=== PATIENT | female | born 1935 | race Caucasian/White ===

== ENCOUNTER 2017-08-26 08:29 | Inpatient (IN) ==
--- NOTE | 2017-08-26 11:42 | Internal Med History&Physical ---
Date of Encounter: 08/26/17 Time of Encounter: 11:39 Internal Medicine - H&P: HPI Chief complaint: upper GIB Admitted From: Intrahospital Transfer Plans for Post Hospital Care: Home History of present illness: Ms. Bobby is a 82 year old woman with a history of Andrade's esophagus who was transferred from [place], [place] because of an upper GIB. She began having multiple episodes of N/V overnight and was taken to [facility]. In the ER she reportedly had several bouts of hematemesis and her hgb was moted to be 11.3. The last available Hgb is from February 2017 when it was 12.7. She does not take antiplatelet agents or anticoagulants and her coags are wnl. She was initially very hypertensive at the OSH with an initial BP of 214/96 recorded. She was given hydralazine prior to transfer and her BP is now improved. An NG tube was placed and she was given IVFs and Zofran to control her N/V. She is not c/o abdominal pain and has not noted dark stools or BRBPR. 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 Past Med Surg Social Fam HX - Past Medical History Medical history: arthritis, COPD, GERD, osteoporosis Psychiatric history: no psych history - Past Surgical History Surgical History: cataract - Social History Smoking Status: Never smoker Smokeless Tobacco Status: No Alcohol use: none Drug use: none All Systems PM: A 10-system review of systems was performed and is negative for pertinent findings except as documented above in the HPI. - Constitutional Constitutional: weakness, no fever(s), no lethargy, no night sweats - EENT Eyes: no blurry vision, no pain, no tunnel vision Ears: no ear discharge, no ear pain Nose, mouth and throat: no bleeding gums, no dental pain, no sinus pain - Cardiovascular Cardiovascular ROS IM: no chest pain, no edema, no lightheadedness, no palpitations - Respiratory Respiratory: no cough, no hemoptysis, no snoring, no stridor - Gastrointestinal Gastrointestinal: coffee ground emesis, hematemesis, no abdominal pain, no constipation, no diarrhea, no hematochezia, no odynophagia - Neurological Neurological ROS: no dizziness, no headache(s), no tremor(s) - Psychiatric Psychiatric: no behavioral changes - Allergic/Immunologic Allergic/Immunologic: no tongue swelling, no wheezing, no lip swelling - Head Head exam: Present: atraumatic, normocephalic - Eye Eye exam: Present: PERRL, conjuntiva pink, sclera anicteric Pupils: Present: PERRL - Neck Neck exam general surgery: Present: supple, trachea midline. Absent: lymphadenopathy - Cardiovascular Cardiovascular exam: Present: RRR, +S1, +S2. Absent: diastolic murmur, gallop, rubs, systolic murmur - GI/Abdominal GI/Abdominal exam: Present: normal bowel sounds, soft, no peritoneal signs. Absent: distended, firm, guarding, tenderness - Expanded GI/Abdominal Exam GI/Abdominal exam expanded: Absent: ascites - Neurological Exam Neurological exam: Present: CN II-XII intact, oriented X3, no focal deficits. 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 Qualified Code(s): K22.719 - Andrade's esophagus with dysplasia, unspecified; K22.71 - Andrade's esophagus with dysplasia Code(s): K22.70 - Andrade's esophagus without dysplasia (3) Acute blood loss anemia Current Visit: Yes Status: Acute Assessment and plan: Serial H&H q6 hrs first 24 hrs Hgb >11 now Protonix 40 mg PO BID SNOMED Code(s): 468341872 (4) Hypertensive urgency Current Visit: Yes Status: Acute Assessment and plan: Add Lisinopril and PRN Hydrazine for SBP > 150 mmHg (5) COPD (chronic obstructive pulmonary disease) Current Visit: No Status: Chronic Assessment and plan: COPD without exacerbation Continue home bronchodilators Qualifiers: Chronic bronchitis type: unspecified Qualified Code(s): J42 - Unspecified chronic bronchitis (6) Hiatal hernia Current Visit: No Status: Chronic (7) GERD (gastroesophageal reflux disease) Current Visit: No Status: Chronic Assessment and plan: Change Omeprazole to Protonix 40 mg q12 hrs Qualifiers: Esophagitis presence: esophagitis presence not specified Qualified Code(s) : K21.9 - Gastro-esophageal reflux disease without esophagitis (8) DVT prophylaxis Current Visit: Yes Status: Acute Assessment and plan: SCDs No anticoagulation - Time Spent With Patient Total time spent is greater than 50% in coordination of care (as documented) at patient's floor/unit and/or counseling patient: Greater than 35 minutes
[2017-08-26] MEDS ORDERED: Ondansetron 4 MG/2 ML VIAL IVP ONE (12:30)
[2017-08-26] MEDS ORDERED: *HR* Promethazine 25 MG/ML VIAL IVP PRN (12:30)
[2017-08-26 12:59] LABS: Hematocrit 37.5 % (35.3-44.9); Hemoglobin 11.7 g/dL (11.5-15.4)
[2017-08-26] MEDS: 0.9 % Sodium Chloride 1,000 ML IVC SCH (13:48)
--- NOTE | 2017-08-26 13:51 | Gastroenterology Consult Note ---
<SheaNeftaly - Last Filed: 08/26/17 16:27> Date of Encounter: 08/26/17 Time of Encounter: 13:49 - Assessment and plan (1) GERD (gastroesophageal reflux disease) Status: Chronic Assessment and plan: Patient takes Omeprazole 40mg PO daily at home Continue PPI Qualifiers: Esophagitis presence: esophagitis presence not specified Qualified Code(s) : K21.9 - Gastro-esophageal reflux disease without esophagitis (2) Andrade esophagus Status: Chronic Assessment and plan: September 2016 EGD revealed Andrade's esophagus Anticipate EGD tomorrow Qualifiers: Andrade's esophagus type: with dysplasia of unspecified degree Qualified Code(s): K22.719 - Andrade's esophagus with dysplasia, unspecified; K22.71 - Andrade's esophagus with dysplasia (3) Acute blood loss anemia Status: Acute Assessment and plan: September 2016 colonoscopy revealed diverticulosis and polyps x3 She does not take antiplatelet agents or anticoagulants Monitor CBC (4) Hematemesis with nausea Status: Acute Assessment and plan: Patient transferred from [facility] due to an upper GIB. She began having multiple episodes of hematemesis overnight with BRB clots. HGB was noted to be 11.3 (decreased from 12.7 in February 2017). NG tube was placed yielding about 1L of coffee ground emesis. Patient was given IVFs and Zofran to control her N/V. Continue NPO status Anticipate EGD tomorrow - Time Spent With Patient Total time spent is greater than 50% in coordination of care (as documented) at patient's floor/unit and/or counseling patient: GI History of Present Illness - Data of Consult Patient: new to practice Consult date: 08/26/17 Requesting Physician: Nikolay Vanegas MD - Consult Narrative Reason for consult: Upper GIB likely Annette Vinicio tear following multiple bouts of N/V hgb>11 History of present illness: Ms. Bobby is a 82 year old female with a history of Andrade's esophagus, GERD, diverticulosis, left nephrectomy for nonfunctional kidney, COPD, and HTN who was transferred from [facility] due to an upper GIB. She began having multiple episodes of hematemesis overnight with BRB clots, and her HGB was noted to be 11.3 (decreased from 12.7 in February 2017). An NG tube was placed yielding about 1L of coffee ground emesis. Patient was given IVFs and Zofran to control her N/V. She currently denies abdominal pain, dark stools, or BRBPR. She was initially very hypertensive with BP of 214/96 and was given Hydralazine prior to transfer. Her BP has now improved. She does not take antiplatelet agents or anticoagulants and has been on Omeprazole 40mg daily. Colonoscopy: September 2016 colonoscopy revealed diverticulosis and polyps x3 EGD: September 2016 EGD revealed Andrade's esophagus Past Med Surg Social Fam HX - Past Medical History Medical history: arthritis, cancer (ovarian), COPD, GERD, osteoporosis Psychiatric history: no psych history - Past Surgical History Surgical History: cataract, hysterectomy, other (left nephrectomy) - Social History Smoking Status: Never smoker Smokeless Tobacco Status: No Alcohol use: none Drug use: none Current living situation: Home - Independent, With Family Activity Level: Independent ambulation - Family History Mother Hx Family Cardiac Disorders: Yes (HTN) Hx Family Endocrine Disorder: Yes (DM) Hx Family Neurologic Disorders: Yes (CVA) Father Hx Family Neurologic Disorders: Yes (CVA) - Gastrointestinal Gastrointestinal: Present: hematemesis, nausea, vomiting. Absent: abdominal pain, change in bowel habits, constipation, diarrhea, dyspepsia, hematochezia, melena - Constitutional Constitutional: fatigue, no anorexia, no fever(s), no weight gain, no weight loss - EENT Nose, mouth and throat: Absent: dysphagia, sore throat - Cardiovascular Cardiovascular ROS: Absent: chest pain, irregular heart rhythm, palpitations - Respiratory Respiratory IM: Absent: cough, dyspnea, hemoptysis - Genitourinary Genitourinary: Present: change in color. Absent: Urinary frequency - Neurological ROS Neurological GI: Present: headache(s), weakness. Absent: confusion, dizziness - Hematologic/Lymphatic Hematologic/Lymphatic pediatric: Present: as per HPI. Absent: easy bleeding - Musculoskeletal Musculoskeletal ROS GI: Present: back pain (chronic). Absent: joint swelling - Integumentary Integumentary GI: Absent: jaundice, pruritis, rash - Psychiatric ROS Psychiatric GI: Absent: anxiety, depression - Endocrine Endocrine IM: Present: fatigue. Absent: cold intolerance, heat intolerance - Constitutional Vitals: Temp Pulse Resp BP Pulse Ox 98.3 F 99 18 185/84 96 08/26/17 12:30 04/03/18 12:30 08/26/17 12:30 08/26/17 12:30 08/26/17 12:30 General appearance: Present: cooperative, A&O X 3, no acute distress, answers questions appropriately - Head Head exam: Present: atraumatic, normocephalic - Eye Eye exam: Present: normal appearance, sclera anicteric - ENT ENT exam: Present: mucous membranes dry (NG tube in place), normal oropharynx - Neck Neck exam general surgery: Present: normal inspection, trachea midline - Respiratory Respiratory exam: Present: CTAB - Cardiovascular Cardiovascular exam: Present: RRR, +S1, +S2 - GI/Abdominal GI/Abdominal exam: Present: normal bowel sounds, soft, no peritoneal signs - Rectal Rectal exam: Present: deferred - Extremities Exam Extremities exam: Present: warm. Absent: pedal edema - Neurological Exam Neurological exam: Present: oriented X3, no focal deficits - Psychiatric Psychiatric exam: Present: normal affect, normal mood - Skin Skin exam: Present: dry, intact, normal color, warm Results - Labs CBC & Chem 7: 08/26/17 12:43 Labs: Entire Visit Hgb 11.7 g/dL (11.5-15.4) 08/26/17 12:43 Hct 37.5 % (35.3-44.9) 08/26/17 12:43 Consult Discharge Plan - Plan Referrals: Rebecca Ordonez, BAG MAKING MACHINE TENDER [Advanced Practice Nurse] - 09/02/17 12:40 pm Prescriptions: Omeprazole [PriLOSEC] 40 mg PO BIDAC #60 capsule. Sucralfate [Carafate] 1 gm PO QIDAC #120 tablet <Hermes Quinn - Last Filed: 09/15/17 07:26> Date of Encounter: 08/26/17 Time of Encounter: 13:00 - Time Spent With Patient Total time spent is greater than 50% in coordination of care (as documented) at patient's floor/unit and/or counseling patient: GI History of Present Illness - Data of Consult Requesting Physician: Nikolay Vanegas MD - Consult Narrative History of present illness: Ms. Bobby is a 82 year old female - Constitutional Vitals: Temp Pulse Resp BP Pulse Ox 98.3 F 98 16 171/64 96 08/28/17 10:39 08/28/17 10:39 08/28/17 10:39 08/28/17 10:39 08/28/17 10:39 Results - Labs CBC & Chem 7: 08/28/17 05:31 08/28/17 05:31 Labs: Last Result Calcium 8.7 mg/dL (8.6-10.3) 08/28/17 05:31 Entire Visit Hgb 9.2 g/dL (11.5-15.4) L 08/28/17 05:31 Hct 30.3 % (35.3-44.9) L 08/28/17 05:31 PT 12.3 Seconds (9.4-12.1) H 08/27/17 04:00 - ABG ABG results: PT/INR, D-dimer PT 12.3 Seconds (9.4-12.1) H 08/27/17 04:00 - Attending Attestation Assessment present 82-year-old female who was transferred from [facility] for an upper endoscopy because of what appears to be episodes of hematemesis. Diagnosis is bleeding Annette-Cook tear versus neoplasm given age group versus garden-variety peptic ulcer disease versus arteriovenous malformations will plan upper endoscopy and make further recommendations patient is been typed and screened and we will follow serial hemoglobin and hematocrits I examined this patient and my medical decision-making was reviewed with the Resident Physician. I agree with the documented findings, disposition and treatment plan as described except to the extent set forth below.
[2017-08-26] MEDS: Pantoprazole 40 MG VIAL IVP SCH (18:55)
[2017-08-26 19:13] LABS: Hematocrit 36.5 % (35.3-44.9); Hemoglobin 11.5 g/dL (11.5-15.4)
[2017-08-27] MEDS: Pantoprazole 40 MG VIAL IVP SCH ×2 (05:08→17:56)
[2017-08-27] MEDS: 0.9 % Sodium Chloride 1,000 ML IVC SCH ×2 (05:13→22:02)
[2017-08-27 05:38] LABS: Basophils % 0.2 %; Eosinophils % 0.2 %; Hemoglobin 10.3 g/dL (11.5-15.4); Immature Granulocytes % 0.3 % (0-4); Lymphocytes # 0.8 K/mcL (0.6-4.6); Lymphocytes % 12.9 %; Mean Corpuscular HGB Conc 30.3 g/dL (31.6-35.5); Mean Corpuscular Hemoglobin 24.8 pg (28.0-33.3); Mean Corpuscular Volume 81.7 fL (83.0-100.0); Mean Platelet Volume 10.7 fL (9.4-12.4); Monocytes # 0.6 K/mcL (0.0-1.3); Monocytes % 9.3 %; Neutrophils # 4.7 K/mcL (1.6-8.9); Platelet Count 192 K/mcL (140-400); Red Blood Count 4.16 M/mcL (3.82-4.97); Red Cell Distribution Width 15.1 % (11.5-14.5); Segmented Neutrophils % 77.1 %
[2017-08-27 05:39] LABS: INR 1.1; Prothrombin Time 12.3 Seconds (9.4-12.1)
[2017-08-27 05:42] LABS: Activated Partial Thrombo Time 26.4 Seconds (26.0-36.0)
--- NOTE | 2017-08-27 08:18 | Internal Med Progress Note ---
Date of Encounter: 08/27/17 Time of Encounter: 08:16 - Assessment and plan (1) Acute blood loss anemia Current Visit: Yes Status: Acute Assessment and plan: Acute blood lows anemia likely secondary to upper GI bleed IV fluids, Protonix IV GI consulted for endoscopy May remove NG tube if okay with GI SNOMED Code(s): 959240134 (2) Hematemesis with nausea Current Visit: Yes Status: Acute Assessment and plan: GI consulted and called H&H q 6 hrs next 24 hours Protonix 40 mg PO BID (Change to IV if N/V occurs agin) IVFs NS at 75 ml/hr (3) Andrade esophagus Current Visit: Yes Status: Chronic Qualifiers: Andrade's esophagus type: with dysplasia of unspecified degree Qualified Code(s): K22.719 - Andrade's esophagus with dysplasia, unspecified; K22.71 - Andrade's esophagus with dysplasia Code(s): K22.70 - Andrade's esophagus without dysplasia (4) Hypertensive urgency Current Visit: Yes Status: Acute Assessment and plan: standing dose of IV hydralazine and PRN Hydrazine for SBP > 150 mmHg May resume ramipril and Dyazide in the morning Resume metoprolol in the morning (5) COPD (chronic obstructive pulmonary disease) Current Visit: No Status: Chronic Assessment and plan: COPD without exacerbation Continue home bronchodilators Qualifiers: Chronic bronchitis type: unspecified Qualified Code(s): J42 - Unspecified chronic bronchitis (6) Hiatal hernia Current Visit: No Status: Chronic (7) GERD (gastroesophageal reflux disease) Current Visit: Yes Status: Chronic Assessment and plan: Takes omeprazole at home Qualifiers: Esophagitis presence: esophagitis presence not specified Qualified Code(s) : K21.9 - Gastro-esophageal reflux disease without esophagitis (8) DVT prophylaxis Current Visit: Yes Status: Acute Assessment and plan: SCDs No anticoagulation (9) Fever Current Visit: Yes Status: Acute Assessment and plan: The patient had a low-grade fever of 99.9, test for respiratory panel She was treated with Tamiflu last week even though her test was negative for the flu at [facility] ER Order blood cultures Qualifiers: Fever type: unspecified Qualified Code(s): R50.9 - Fever, unspecified (10) Chronic kidney disease, stage III (moderate) Current Visit: Yes Status: Acute Assessment and plan: Check basic metabolic panel The patient has history of only one kidney due to nephrectomy - Time Spent With Patient Total time spent is greater than 50% in coordination of care (as documented) at patient's floor/unit and/or counseling patient: - Constitutional Vitals: Temp Pulse Resp BP Pulse Ox 99.5 F 97 16 161/73 97 08/27/17 04:45 08/27/17 04:45 08/27/17 04:45 08/27/17 04:45 08/27/17 04:45 Internal Medicine: Result - Labs CBC & Chem 7: 08/27/17 04:00 Labs: Short CBC 08/26/17 08/26/17 08/27/17 Range/Units 12:43 18:50 04:00 WBC 6.0 (4.3-11.1) K/mcL Hgb 11.7 11.5 10.3 L (11.5-15.4) g/dL Hct 37.5 36.5 34.0 L (35.3-44.9) % Plt Count 192 (140-400) K/mcL Neutrophils # 4.7 (1.6-8.9) K/mcL - ABG Interpretation ABG results: PT/INR, D-dimer PT 12.3 Seconds (9.4-12.1) H 08/27/17 04:00 Consult Discharge Plan - Plan Referrals: Jose L Schmitz MD [Primary Care Provider] -
[2017-08-27 09:44] LABS: BUN/Creatinine Ratio 16 (6-26); Blood Urea Nitrogen 15 mg/dL (8-23); Calcium 9.2 mg/dL (8.6-10.3); Carbon Dioxide 26 mEq/L (23-29); Chloride 109 mEq/L (98-107); Glucose 104 mg/dL (70-105); Osmolality,Calculated 293 (280-300); Potassium 3.3 mEq/L (3.5-5.1); Sodium 141 mEq/L (136-145); eGFR For African Americans > 60 (> 60); eGFR For Non-African Americans 56 (> 60)
[2017-08-27] MEDS ORDERED: *HR* Propofol 200 MG/20 ML VIAL IVP ONE (13:43)
[2017-08-27] MEDS ORDERED: Lidocaine -MPF 2% 2 ML VIAL ONE (13:44)
[2017-08-27] MEDS ORDERED: *HR* Metoprolol 5 MG/5 ML VIAL IVP ONE (14:01)
--- NOTE | 2017-08-27 15:01 | Anesthesia Evaluation PreOp ---
Date of Encounter: 08/27/17 Time of Encounter: 14:58 - Past History Planned Operation: EGD Cardiac History: HTN, Hyperlipidemia Pulmonary History: COPD CAREER DEVELOPMENT COORDINATOR/TEACHER History: TIA Other Medical History: GERD Anesthesia History: No Prior Anesthetic Complications, Past Anesthesia Alcohol Use: none Drug use: none Medications and Allergies Cholecalciferol (D-3) [Vitamin D] 1,000 unit PO DAILY 08/26/17 [History] Metoprolol XL (24 HR) Succ [Toprol XL] 12.5 mg PO DAILY 08/26/17 [History] Multivitamin [One Daily Multivitamin] 1 each PO DAILY 08/26/17 [History] Omeprazole [PriLOSEC] 20 mg PO DAILY 08/26/17 [History] Omeprazole [PriLOSEC] 40 mg PO DAILY 08/26/17 [History] Ramipril [Ramipril] 1.25 mg PO DAILY 08/26/17 [History] Simvastatin [Zocor] 20 mg PO HS 08/26/17 [History] Triamterene/Hydrochlorothiazid [Dyazide 37.5-25 Capsule] 1 each PO DAILY [History] Zinc Acetate [Galzin] 50 mg PO DAILY 08/26/17 [History] 3 Allergy/AdvReac Type Severity Reaction Status Date / Time acetaminophen [From Vicodin] Allergy Vomiting Verified 08/26/17 13:10 codeine Allergy Vomiting Verified 08/26/17 13:10 hydrocodone [From Vicodin] Allergy Vomiting Verified 08/26/17 13:10 nitrofurantoin Allergy Nausea Verified 08/26/17 13:10 [From Macrobid] Sulfa (Sulfonamide Allergy Rash Verified 08/26/17 13:10 Antibiotics) - Meds/Allergy Pre-op Review Medications Reviewed: Yes Allergies Reviewed: Yes Beta Blockers on Current Med List: Yes Anesthesia Results - Labs 08/27/17 04:00 08/27/17 08:52 Anesthesia Exam Vital Signs/O2 Sat/Glucose, Most Recent Temp Pulse Resp BP Pulse Ox 98.9 F 96 18 155/70 94 08/27/17 10:55 08/27/17 10:55 08/27/17 10:55 08/27/17 10:55 08/27/17 10:55 Blood Glucose* 106 Height: 5'2''/1.57 m Weight: 159 lbs/72 kg NPO (# of Hours): 8 Pain Scale: 0 Pain Scale Used: Numeric (1 - 10) - HEENT Pupil (Motor): EOMI Mallampati: II Teeth: Edentulous Oral Opening: Greater than 3 - CAREER DEVELOPMENT COORDINATOR/TEACHER LOC: Oriented CAREER DEVELOPMENT COORDINATOR/TEACHER Motor: Normal RUE, Normal LUE, Normal RLE, Normal LLE, Normal Face CAREER DEVELOPMENT COORDINATOR/TEACHER Sensory: Normal: RUE, LUE, RLE, LLE, Face - Cardiac Rhythm: Regular Murmur: None - Pulmonary Breath Sounds: bilateral Clear Respiratory Effort: Symmetrical Anesthesia Assess/Plan ASA Score: 3 Modified Rincon Scale for Level of Consciousness: Cooperative, oriented, and tranquil Anesthetic Plan: MAC Monitoring Plan: Standard Monitors
--- NOTE | 2017-08-27 15:36 | Anesthesia Evaluation Post Op ---
Date of Encounter: 08/27/17 Time of Encounter: 15:35 - Vital Signs Vital Signs: Vital Signs/O2 Sat/Glucose, Most Recent Temp Pulse Resp BP Pulse Ox 99.7 F H 107 22 165/65 92 08/27/17 14:47 08/27/17 14:47 08/27/17 14:47 08/27/17 14:47 08/27/17 14:47 Blood Glucose* 106 - Lungs Lungs: Clear Ascult./Percussion - Airway Airway: Non-obstructed - Cardiovascular Regular Rate, Baseline Rhythm - Mental Status Mental Status: Alert & Oriented, Answers Appropriately, Baseline Status - Pain Pain Scale: 0 Pain Scale used: Numeric (1 - 10) - Nausea Vomiting Nausea Vomiting: Not Present - Hydration Hydration: NPO Notes: 08/27/17 15:35 naac - Discharge PostOp Status: Transfer Patient to floor
[2017-08-27] MEDS: Sucralfate 1 GM TABLET PO SCH ×2 (17:55→22:01)
[2017-08-27 20:36] LABS: Hematocrit 32.7 % (35.3-44.9); Hemoglobin 9.9 g/dL (11.5-15.4)
[2017-08-28] MEDS: Pantoprazole 40 MG VIAL IVP SCH (05:24)
[2017-08-28 05:58] LABS: Hematocrit 30.3 % (35.3-44.9); Hemoglobin 9.2 g/dL (11.5-15.4); Mean Corpuscular HGB Conc 30.4 g/dL (31.6-35.5); Mean Corpuscular Hemoglobin 24.9 pg (28.0-33.3); Mean Corpuscular Volume 82.1 fL (83.0-100.0); Mean Platelet Volume 10.5 fL (9.4-12.4); Platelet Count 146 K/mcL (140-400); Red Blood Count 3.69 M/mcL (3.82-4.97); Red Cell Distribution Width 15.3 % (11.5-14.5)
[2017-08-28 06:19] LABS: BUN/Creatinine Ratio 18 (6-26); Blood Urea Nitrogen 14 mg/dL (8-23); Calcium 8.7 mg/dL (8.6-10.3); Carbon Dioxide 26 mEq/L (23-29); Chloride 114 mEq/L (98-107); Glucose 97 mg/dL (70-105); Osmolality,Calculated 292 (280-300); Potassium 3.2 mEq/L (3.5-5.1); Sodium 141 mEq/L (136-145); eGFR For African Americans > 60 (> 60); eGFR For Non-African Americans > 60 (> 60)
[2017-08-28] MEDS: Sucralfate 1 GM TABLET PO SCH ×2 (07:51→11:51)
[2017-08-28] MEDS ORDERED: Metoprolol XL (24 HR) Succ 25 MG TAB.ER.24H PO SCH (09:00)
--- NOTE | 2017-08-28 10:19 | Gastroenterology Progress Note ---
<Neftaly Valdivia - Last Filed: 08/28/17 10:17> Date of Encounter: 08/28/17 Time of Encounter: 10:17 - Assessment and plan (1) GERD (gastroesophageal reflux disease) Status: Chronic Assessment and plan: Patient transferred from [facility] due to an upper GIB. She began having multiple episodes of hematemesis overnight with BRB clots. HGB was noted to be 11.3 (decreased from 12.7 in February 2017). NG tube was placed yielding about 1L of coffee ground emesis. Patient was given IVFs and Zofran to control her N/V. Mechanically soft diet as tolerated. EGD revealed Grade B reflux esophagitis and medium sized hiatal hernia Increase home Omeprazole to 40mg PO BID Continue Carafate Stable from a GI perspective. Follow up with GI in 2-4 weeks. 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 Patient reports tolerating PO intake and is eager to go home. She denies further hematemesis or any new c/o. - Constitutional Vitals: Temp Pulse Resp BP Pulse Ox 98.6 F 87 14 155/64 97 08/28/17 07:13 08/28/17 07:13 08/28/17 07:13 08/28/17 07:13 08/28/17 07:13 General appearance: Present: cooperative, A&O X 3, no acute distress, answers questions appropriately - Head Head exam: Present: atraumatic, normocephalic - Eye Eye exam: Present: normal appearance, sclera anicteric - ENT ENT exam: Present: mucous membranes moist, normal oropharynx - Neck Neck exam general surgery: Present: normal inspection, trachea midline - Respiratory Respiratory exam: Present: CTAB - Cardiovascular Cardiovascular exam: Present: RRR, +S1, +S2 - GI/Abdominal GI/Abdominal exam: Present: normal bowel sounds, soft, no peritoneal signs. Absent: tenderness - Rectal Rectal exam: Present: deferred - Extremities Exam Extremities exam: Present: warm. Absent: pedal edema - Neurological Exam Neurological exam: Present: oriented X3, no focal deficits - Psychiatric Psychiatric exam: Present: normal affect, normal mood - Skin Skin exam: Present: dry, intact, normal color, warm Results - Labs CBC & Chem 7: 08/28/17 05:31 08/28/17 05:31 Labs: Last Result Calcium 8.7 mg/dL (8.6-10.3) 08/28/17 05:31 Entire Visit Hgb 9.2 g/dL (11.5-15.4) L 08/28/17 05:31 Hct 30.3 % (35.3-44.9) L 08/28/17 05:31 PT 12.3 Seconds (9.4-12.1) H 08/27/17 04:00 - ABG ABG results: PT/INR, D-dimer PT 12.3 Seconds (9.4-12.1) H 08/27/17 04:00 - VTE Documentation of Mechanical Device: Intermittent pneumatic compression device Consult Discharge Plan - Plan Referrals: Rebecca Ordonez, JEWELRY ESTIMATOR [Advanced Practice Nurse] - 09/02/17 12:40 pm Prescriptions: Omeprazole [PriLOSEC] 40 mg PO BIDAC #60 capsule. Sucralfate [Carafate] 1 gm PO QIDAC #120 tablet <Hermes Quinn - Last Filed: 09/15/17 07:48> Date of Encounter: 08/28/17 - Time Spent With Patient Total time spent is greater than 50% in coordination of care (as documented) at patient's floor/unit and/or counseling patient: - Constitutional Vitals: Temp Pulse Resp BP Pulse Ox 98.3 F 98 16 171/64 96 08/28/17 10:39 08/28/17 10:39 08/28/17 10:39 08/28/17 10:39 08/28/17 10:39 Results - Labs CBC & Chem 7: 08/28/17 05:31 04 05:31 Labs: Last Result Calcium 8.7 mg/dL (8.6-10.3) 08/28/17 05:31 Entire Visit Hgb 9.2 g/dL (11.5-15.4) L 08/28/17 05:31 Hct 30.3 % (35.3-44.9) L 08/28/17 05:31 PT 12.3 Seconds (9.4-12.1) H 08/27/17 04:00 - ABG ABG results: PT/INR, D-dimer PT 12.3 Seconds (9.4-12.1) H 08/27/17 04:00 - Attending Attestation I examined this patient and my medical decision-making was reviewed with the Resident Physician. I agree with the documented findings, disposition and treatment plan as described except to the extent set forth below.
[2017-08-28 10:41] VITALS: BP 171/64
--- NOTE | 2017-08-28 12:18 | Discharge Summary ---
- NOTES TO OUTPATIENT PROVIDER Notes to Outpatient Provider: admitted for hematemesis. EGD showed Large Grade B esophagitis, discharged on increased dose of PPI-40mg BID as well as sucralfate. 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 Code(s): K22.70 - Andrade's esophagus without dysplasia (3) Acute blood loss anemia Priority: Primary Status: Acute SNOMED Code(s): 038454211 (4) Hypertensive urgency Priority: Primary Status: Resolved (5) COPD (chronic obstructive pulmonary disease) Priority: Secondary Status: Chronic Qualifiers: COPD type: unspecified COPD Qualified Code(s): J44.9 - Chronic obstructive pulmonary disease, unspecified (6) Hiatal hernia Priority: Secondary Status: Chronic (7) GERD (gastroesophageal reflux disease) Priority: Secondary Status: Chronic Qualifiers: Esophagitis presence: esophagitis presence not specified Qualified Code(s) : K21.9 - Gastro-esophageal reflux disease without esophagitis (8) DVT prophylaxis Priority: Primary Status: Acute (9) Chronic kidney disease, stage III (moderate) Priority: Secondary Status: Chronic Hospital course: Ms. Bobby is a 82 year old female with medical history of GERD and Andrade's esophagitis was admitted for hematemesis and acute on chronic anemia. She also had hypertensive urgency with uncontrolled blood pressure. Patient transferred from [facility] due to an upper GIB. She began having multiple episodes of hematemesis overnight with BRB clots. HGB was noted to be 11.3 (decreased from 12.7 in February 2017). NG tube was placed yielding about 1L of coffee ground emesis. Patient was given IVFs and Zofran to control her N/V. Mechanically soft diet as tolerated. EGD revealed Grade B reflux esophagitis and medium sized hiatal hernia She was seen and examined at the bedside this morning. She has no new complaints. She denies any further hematemesis. She denies nausea and vomiting. Her blood pressure is better controlled on her home medications. She patient is medically stable to be discharged on omeprazole twice a day and Carafate. Follow-up with gastroenterology in 2-4 weeks. Follow-up with PCP. Plan of care was discussed with the patient and she verbalized understanding. Discharge discussed with: patient, nurse, case management - Time Spent with Patient Total time spent providing and/or coordinating discharge services: Greater than 30 minutes - Discharge Medications Prescriptions: Omeprazole [PriLOSEC] 40 mg PO BIDAC #60 capsule. Sucralfate [Carafate] 1 gm PO QIDAC #120 tablet Home Medications: Cholecalciferol (D-3) [Vitamin D] 1,000 unit PO DAILY 08/26/17 [History] Metoprolol XL (24 HR) Succ [Toprol Xl] 12.5 mg PO DAILY 08/26/17 [History] Multivitamin [One Daily Multivitamin] 1 each PO DAILY 08/26/17 [History] Ramipril 1.25 mg PO DAILY 08/26/17 [History] Simvastatin [Zocor] 20 mg PO HS 08/26/17 [History] Triamterene/Hydrochlorothiazid [Dyazide 37.5-25 Capsule] 1 each PO DAILY [History] Zinc Acetate [Galzin] 50 mg PO DAILY 08/26/17 [History] Omeprazole [PriLOSEC] 40 mg PO BIDAC #60 capsule. 08/28/17 [Rx] Sucralfate [Carafate] 1 gm PO QIDAC #120 tablet 08/28/17 [Rx] Allergies/Adverse Reactions: 3 Allergy/AdvReac Type Severity Reaction Status Date / Time acetaminophen [From Vicodin] Allergy Vomiting Verified 08/26/17 13:10 codeine Allergy Vomiting Verified 08/26/17 13:10 hydrocodone [From Vicodin] Allergy Vomiting Verified 08/26/17 13:10 nitrofurantoin Allergy Nausea Verified 08/26/17 13:10 [From Macrobid] Sulfa (Sulfonamide Allergy Rash Verified 08/26/17 13:10 Antibiotics) Date of admission: 08/26/17 11:11 Primary care physician: Roxie Langston Consults: 08/26/17 12:25 Consult to Gastroenterology [CONS] Routine Consulting Provider: Tray Webb Reason for Consult: upper GIB likely Annette Vinicio tear following multiple bouts of N/V (hgb >11) Time Notified: 12:27 Call Completed: Yes Discharging clinician: Nikolay Vanegas Anticipated date of discharge: 08/28/17 - Constitutional Vitals: Temp Pulse Resp BP Pulse Ox 98.3 F 98 16 171/64 96 08/28/17 10:39 08/28/17 10:39 08/28/17 10:39 08/28/17 10:39 08/28/17 10:39 General appearance: Present: A&O X 3, pleasant, no acute distress - Head Head exam: Present: atraumatic, normocephalic - Eye Eye exam: Present: PERRL, conjuntiva pink, sclera anicteric Pupils: Present: PERRL - Neck Neck exam general surgery: Present: supple, trachea midline. Absent: lymphadenopathy - Respiratory Respiratory exam: Present: CTAB. Absent: accessory muscle use, rales, rhonchi, wheezes - Cardiovascular Cardiovascular exam: Present: RRR, +S1, +S2. Absent: diastolic murmur, gallop, rubs, systolic murmur - GI/Abdominal GI/Abdominal exam: Present: normal bowel sounds, soft, no peritoneal signs. Absent: distended, tenderness - Extremities Exam Extremities exam: Present: warm, radial pulses palpable and symmetrical. Absent : calf tenderness, cyanotic, pedal edema - Neurological Exam Neurological exam: Present: alert, CN II-XII intact, oriented X3, no focal deficits. Absent: pronater drift, facial droop, speech deficit - Skin Skin exam: Present: dry, intact - Patient Status Disposition: Home, Self-Care Condition: Good Functional capacity at discharge: independent ambulation Overall status at discharge: patient is back to baseline - Discharge Instructions Follow Up With: Rebecca Ordonez [employer]IAISON [Advanced Practice Nurse] - 09/02/17 12:40 pm - Diet and Activity Activity: resume usual activities as tolerated Diet: low salt diet - VTE Documentation of Mechanical Device: Intermittent pneumatic compression device
== END 2017-08-28 14:02 | disposition home or self-care (01) | DRG 378 ==
LOC: 3ANU
PROVIDERS: ADMIT Internal Medicine; ATTEND Internal Medicine
PROC: ENDOEBX (2017-08-27 13:30)